=== PATIENT | female | born 1960 | race Caucasian/White ===

== ENCOUNTER 2023-02-13 14:45 | Outpatient (CLI) | payer BC, SELFPAY | END 2023-02-13 14:46 | disposition home or self-care (01) | PROVIDERS: PCP Emergency Medicine; Visit Provider Emergency Medicine | DX: Z00.00 Encounter for general adult medical examination without abnormal findings (principal); E03.9 Hypothyroidism, unspecified; G62.0 Drug-induced polyneuropathy; T45.1X5A Adverse effect of antineoplastic and immunosuppressive drugs, initial encounter | CPT/HCPCS: 82607; 82746; 84439; 84443 ==

== ENCOUNTER 2023-06-13 16:40 | Outpatient (CLI) | payer BC, SELFPAY | END 2023-06-13 16:41 | disposition home or self-care (01) | LOC: NFLDREF 06-14 06:42 | PROVIDERS: PCP Emergency Medicine; Referring Provider Emergency Medicine; Visit Provider Emergency Medicine | DX: E03.9 Hypothyroidism, unspecified (principal); R42 Dizziness and giddiness | CPT/HCPCS: 84439; 84443 ==

== ENCOUNTER 2023-10-29 15:26 | Outpatient (CLI) | payer BC, SELFPAY | END 2023-10-29 15:27 | disposition home or self-care (01) | PROVIDERS: PCP Emergency Medicine; Visit Provider Emergency Medicine | DX: Z13.220 Encounter for screening for lipoid disorders (principal); Z13.1 Encounter for screening for diabetes mellitus; E03.9 Hypothyroidism, unspecified; G62.0 Drug-induced polyneuropathy; T45.1X5A Adverse effect of antineoplastic and immunosuppressive drugs, initial encounter | CPT/HCPCS: 80061; 82607; 84439; 84443 ==

== ENCOUNTER 2024-02-06 12:30 | Outpatient (CLI) | payer BC, SELFPAY ==
--- NOTE | 2024-02-06 13:00 | CRLHL7_ITS ---
For Patients: As a result of the Century Cures Act, medical imaging exams and procedure reports are released immediately into your electronic medical record. You may view this report before your referring provider. If you have questions, please contact your health care provider. DXA BONE MINERAL DENSITY STUDY Reason for exam: Encounter for screening for osteoporosis. Current height (in): 68. Weight (lb): 120. Menopause age: 60. Ethnicity: White. 1. Have you had a previous hip or vertebral fracture? No. 2. Have you had any fractures during your adult life which did not result from significant trauma (e.g., auto accident)? No. 3. Did either of your parents have a hip fracture? No. 4. Do you smoke? No. 5. Have you ever taken Glucocorticoids? No. 6. Do you have rheumatoid arthritis? No. 7. Do you have secondary osteoporosis? No. 8. Do you drink 3 or more alcoholic drinks per day? No. 9. Are you being treated for osteoporosis? No. 10. Have you ever taken any of the following medications: Actonel, Evista, Fosamax, Miacalcin, Reclast, Boniva, Forteo, HRT (i.e. estrogen/hormone therapy), Protelos, Prolia, Vitamin D, Calcium, other ??? please specify. ANSWER: No. 11. Do you have any of the following medical conditions: Anorexia or bulimia, asthma or emphysema, end stage renal disease, hyperparathyroidism, any seizure disorders, cancer, inflammatory bowel diseases, hysterectomy, other ??? please specify. ANSWER: Yes, asthma or emphysema, hyperparathyroidism, and cancer 12. What was your maximum height (inches)? 68. 13. Do you perform weight bearing exercise regularly? Yes. 14. Do you regularly consume dairy products? Yes. 15. Do you drink caffeinated beverages? No. 16. At what age did your period start? 16. 17. Are you premenopausal? No. 18. How many full term pregnancies have you had? 0. 19. Have you ever missed your period for more than 6 months in a row (not including or menopause)? No. TECHNIQUE: Bone mineral density study was performed using the [employer]. FINDINGS: The results of the study expressed as bone mineral density (BMD) are as follows: Lumbar spine L1 to L4: BMD: 0.763 g/cm2. T-score: -2.6. Z-score: -1.1. Neck Left: BMD: 0.552 g/cm2. T-score: -2.7. Z-score: -1.3. Right: BMD: 0.560 g/cm2. T-score: -2.6. Z-score: -1.2. Total Left: BMD: 0.697 g/cm2. T-score: -2.0. Z-score: -1.0. Right: BMD: 0.677 g/cm2. T-score: -2.2. Z-score: -1.1. IMPRESSION: Osteoporosis. *Comparison exams done prior to 12/2019 were performed on different unit, [place]. COMPARISON: Compared with scan of 03/10/2015, the bone mineral density has decreased by 11 percent at the spine and decreased by 11.4 percent at the hip. Robb Ramírez M.D. Diagnostic Radiologist [email or web address] DSM/sp R: 02/07/2024 Transcribed: 2:51 p.m. SP/Dictated by: Robb Ramírez MD @ 02/07/2024 11:53:00 AM (Electronically Signed)
--- NOTE | 2024-02-06 13:40 | CRLHL7_ITS ---
For Patients: As a result of the Century Cures Act, medical imaging exams and procedure reports are released immediately into your electronic medical record. You may view this report before your referring provider. If you have questions, please contact your health care provider. BILATERAL SCREENING MAMMOGRAM WITH COMPUTER-AIDED DETECTION AND TOMOSYNTHESIS TECHNIQUE: CC and MLO views were obtained. These mammographic images have been obtained using full-field digital technique. These mammographic images were interpreted with the benefit of computer-aided detection. Breast Tomosynthesis was used in this interpretation. COMPARISON FILM: 03/10/15. FINDINGS: There are scattered areas of fibroglandular density IMPRESSION: There is no radiographic evidence for malignancy. ASSESSMENT: BI-RADS Category 1: Negative RECOMMENDATION: Routine screening mammogram in 1 year. A lay language report of this examination will be provided to the patient. Robb Ramírez M.D. Diagnostic Radiologist [email or web address] OLLIE/Dictated by: Robb Ramírez MD @ 02/07/2024 9:32:00 AM (Electronically Signed)
== END 2024-02-06 12:31 | disposition home or self-care (01) ==
PROVIDERS: PCP Emergency Medicine; Visit Provider Emergency Medicine
DX: Z12.31 Encounter for screening mammogram for malignant neoplasm of breast (principal); Z13.820 Encounter for screening for osteoporosis; M81.0 Age-related osteoporosis without current pathological fracture
CPT/HCPCS: 77063; 77067; 77080

== ENCOUNTER 2024-03-10 15:04 | Outpatient (CLI) | payer BC, SELFPAY | END 2024-03-10 15:05 | disposition home or self-care (01) | PROVIDERS: PCP Emergency Medicine; Visit Provider Emergency Medicine | DX: M81.0 Age-related osteoporosis without current pathological fracture (principal); E03.9 Hypothyroidism, unspecified | CPT/HCPCS: 80048; 80076; 82306; 84100 ==

== ENCOUNTER 2024-10-13 16:02 | Outpatient (CLI) | payer MEDICARE, SELFPAY | END 2024-10-13 16:03 | disposition home or self-care (01) | PROVIDERS: PCP Emergency Medicine; Visit Provider Emergency Medicine | DX: E03.9 Hypothyroidism, unspecified (principal); R63.4 Abnormal weight loss; M81.0 Age-related osteoporosis without current pathological fracture; G62.9 Polyneuropathy, unspecified; R26.89 Other abnormalities of gait and mobility | CPT/HCPCS: 80053; 82306; 82607; 84100; 84443 ==

== ENCOUNTER 2025-02-10 16:31 | Outpatient (CLI) | payer MEDICARE, SELFPAY | END 2025-02-10 16:32 | disposition home or self-care (01) | PROVIDERS: Visit Provider Emergency Medicine | DX: E03.9 Hypothyroidism, unspecified (principal); M13.0 Polyarthritis, unspecified; Z11.8 Encounter for screening for other infectious and parasitic diseases | CPT/HCPCS: 84443; 86200; 86618 ==